=== PATIENT | male | born 1955 | race Caucasian/White ===

== ENCOUNTER 2016-07-15 09:56 | Day surgery (SDC) | payer OTHER ==
[~2016-07-15] VITALS: Ht 185.4 cm; Wt 88.5 kg
[~2016-07-15 09:56] MED LIST: ASPI81TA3 PO; ATOR20TA65 PO; Lisinopril PO; METO25TA6 PO; NITR0.4T SL; SILD100T PO; Sodium Chloride LOK Flush 10 mL Syringe IV PRN; fentaNYL-PF 50 mCg/mL 2 mL Inj IVPUSH PRN
[2016-07-15 10:11] VITALS: BP 139/93; PULSE 52; RESP 16; O2SAT 99
[2016-07-15] MEDS: 0.9% Sodium Chloride 1,000 ML IV SCH ×2 (10:46→11:09)
[2016-07-15 11:19] VITALS: BP 98/61; PULSE 64; RESP 16
[2016-07-15 11:41] VITALS: BP 94/58; PULSE 58; RESP 16; O2SAT 95
--- NOTE | 2016-07-15 13:13 | ENDO ---
[address] [address] ENDOSCOPY PROCEDURE PATIENT: OTTONIEL MARIE : 1955 MR#: [id number] ADMIT: 07/15/2016 JOB ID: [id number] DATE: 07/15/2016 PRIMARY PROVIDER: Phoenix Zamudio M.D. PROCEDURE: A colonoscopy with hot snare polypectomy. INDICATIONS: A 60-year-old male reports for colon cancer screening. EQUIPMENT: PCF H 180 AL. SEDATION: 1. 4 mg Versed. 2. 75 mcg fentanyl. COMPLICATIONS: None identified. BOWEL PREPARATION: Fair, adequate examination. PROCEDURAL INFORMATION: After the risks and benefits were explained, written and verbal informed consent was obtained. The patient was brought into the endoscopy suite and placed into the left lateral decubitus position. Sedation was achieved using the above-stated medications with the addition of oxygen via nasal cannula. A digital rectal examination was accomplished. No significant pathology appreciated. The scope was introduced into the rectum and advanced to the cecum as identified by the appendiceal orifice and ileocecal valve. The scope was slowly withdrawn to carefully examine the mucosa for any defects or lesions. Multiple direct views were made through the dentate line for exclusion of pathology. The colon was decompressed. The scope removed from the patient who tolerated the procedure well. FINDINGS: There was some mild diverticulosis in the sigmoid. There was a little bit of scattered petechiae through the distal rectum consistent with prep artifact. No evidence of any proctitis or colitis throughout. Mild internal hemorrhoids were noted on direct views. There was an approximately 8-9 mm semi pedunculated (short broad stalk) polyp in the rectum. This was removed with hot snare polypectomy. ENDOSCOPIC DIAGNOSES: 1. Colon polyp. 2. Diverticulosis. 3. Mild hemorrhoids. RECOMMENDATIONS: 1. Await histopathology. 2. Repeat colonoscopy in five years. [facility]
--- NOTE | 2016-07-16 19:36 | PATH ---
SURGICAL PATHOLOGY Attending Physician:Jerry Hall CASE STATUS: Signed Out PATIENT NAME: OTTONIEL MARIE PID: [id number] : 1955 DATE COLLECTED:07/15/2016 20:08 SPECIMEN: Rectum, Biopsy CLINICAL HISTORY: 1). RECTAL POLYP FINAL DIAGNOSIS: Rectum, Polyp, Biopsy: Tubular adenoma; negative for high-grade dysplasia. ICD10: K62.1 GROSS DESCRIPTION: The specimen is received in one formalin filled container labeled with the patient's name, sublabeled "rectal polyp" and consists of a 0.6 0.6 0.5 CM portion of tissue which is entirely submitted in one cassette. 07/15/2016 [facility] ICD-9 CODES: CPT CODES: 1: 32113 Electronically Signed Out Chelsea Rabago MD [facility] Pathology [facility], [place] [address] Technical component performed at [facility], [address] [place] [address] Ave[address], [place], [address]
== END 2016-07-15 23:59 | disposition home or self-care (01) ==
LOC: END 09:56
PROVIDERS: ATTEND Internal Medicine Gastroenterology
DX: Z12.11 Encounter for screening for malignant neoplasm of colon (principal); D12.8 Benign neoplasm of rectum; I10 Essential (primary) hypertension; I25.2 Old myocardial infarction; K57.30 Diverticulosis of large intestine without perforation or abscess without bleeding; K64.9 Unspecified hemorrhoids
CPT/HCPCS: 45385; G0500; J7030

== ENCOUNTER 2016-07-21 17:29 | Emergency (ER) | payer OTHER ==
[~2016-07-21] VITALS: Ht 185.4 cm; Wt 88.6 kg
[~2016-07-21 17:29] MED LIST changes: -Sodium Chloride LOK Flush 10 mL Syringe IV PRN; -fentaNYL-PF 50 mCg/mL 2 mL Inj IVPUSH PRN
[2016-07-21 17:49] VITALS: BP 166/97; PULSE 60; RESP 16; O2SAT 96
[2016-07-21 18:40] LABS: BASOPHILS % (AUTO) 0.4 % (0-3); EOSINOPHILS % (AUTO) 5.1 % (0-5); MONOCYTES % (AUTO) 8.6 % (4-12); Mean Corpuscular Hemoglobin 30.6 pg (27.0-35.0); Mean Corpuscular Volume 89.6 fL (81-100); NEUTROPHILS % (AUTO) 63.8 % (40-74); Platelet Count 197 bil/L (150-400)
--- NOTE | 2016-07-21 19:00 | ED.REPORT ---
HPI-GI Bleed Date of Service Jul 21, 2016 ED Provider: Elgin Bunch MD A 60 year old male with a history of ND, hypertension, and colonoscopy presents to the ED with rectal bleeding. This began following his colonoscopy 6 days ago. The bleeding began with a small amount of bright red blood with bowel movements for three days and heavy bleeding with bowel movements yesterday. He states that his toilet paper now has a large amount of blood after wiping and that his undergarments have been spotted with blood from when he passes gas. The patient has had one bowel movement per day for the last two days. He denies abdominal pain, nausea, lightheadedness, pain with bowel movements, black stools or hard stools. Nursing Notes Stated Complaint: BLEEDING Chief Complaint: Male Abdominal Pain Nursing Notes Reviewed: Yes Allergies: Coded Allergies: procaine (Verified Allergy, Unknown, syncope, 07/21/16) Scheduled ([Lisinopril]) 10 MG TABLET 10 MG PO HS Aspirin Chew (Aspirin Chew) 81 Mg Tablet 81 MG PO DAILY Atorvastatin Calcium (Atorvastatin Calcium) 20 Mg Tablet 40 MG PO HS Metoprolol Tartrate (Metoprolol Tartrate) 25 Mg Tablet 25 MG PO BID Scheduled PRN Nitroglycerin SL (Nitrostat) 0.4 Mg Tablet 0.4 MG SL Q5MIN PRN PRN For Chest Pain Sildenafil Citrate (Viagra) 100 Mg Tablet 100 MG PO UD PRN PRN for sexual activity General Time Seen by Provider: 19:00 Chief Complaint Chief Complaint: Other (Rectal bleeding) Hx Obtained From: Patient Arrived By: Walk-in Onset Occurred: 6 days ago Context of Onset: Other Symptom Duration: Since onset Recent Healthcare: No recent hospitalization, Recent doctor visit Past Medical History Past Medical History ND 2015 hypertension arthritis Past Surgical History colonoscopy 06/2016 Smoking History Light Tobacco Smoker Social History Alcohol Use: 1-3 per week Drug Use: Denies drug use Ambulatory Status Independent Review of Systems Review of Systems Note: rectal bleeding denies hard stools denies pain with bowel movements denies black stool GI: Denies: Abdominal pain, Diarrhea, Nausea Neurologic: Denies: Lightheaded Complete sys rev & neg: except as marked. Physical Exam Initial Vital Signs Vital Signs (First) Date Time Temp Pulse Resp B/P Pulse Ox O2 Delivery O2 Flow Rate FiO2 07/21/16 17:49 36.4 60 16 166/97 96 Room Air Initial VS: Reviewed Head / Eyes: Atraumatic, Normocephalic Extremities: Vascular intact, Neuro intact Skin: Warm, Dry Neurologic: Alert, Oriented Psychiatric: Mood/affect normal General/Constitutional: Awake, Alert, Well appearing Respiratory / Chest: Atraumatic, Breath sounds NL, Breath sounds = bilat, No respiratory distress Cardiovascular: Heart rate NL, Regular rhythm, Heart sounds NL Abdomen: Atraumatic, Soft, Non-tender, BS normoactive Rectum / Perineum: No mass, Prostate NL Externally normal Nontender Small amount of bright red blood on glove Back: Atraumatic, Full range of motion Interpretation & Diagnostics Lab Results Interpretation Result Diagram: 07/21/16 1825 07/21/16 1825 Test 07/21/16 18:25 White Blood Count 7.2th/mm3 (3.8-10.1) Red Blood Count 4.83mil/mm3 (4.40-5.80) Hemoglobin 14.8g/dL (13.8-17.2) Hematocrit 43.3% (41.0-50.0) Mean Corpuscular Volume 89.6fL (81-100) Mean Corpuscular Hemoglobin 30.6pg (27.0-35.0) Mean Corpuscular Hemoglobin Concent 34.2% (32.0-37.0) Red Cell Distribution Width 13.1% (12.3-15.4) Platelet Count 197bil/L (150-400) Neutrophils (%) (Auto) 63.8% (40-74) Lymphocytes (%) (Auto) 22.0% (14-46) Monocytes (%) (Auto) 8.6% (4-12) Eosinophils (%) (Auto) 5.1% (0-5) Basophils (%) (Auto) 0.4% (0-3) Sodium Level 139mEq/L (134-144) Potassium Level 4.1mEq/L (3.5-5.2) Chloride Level 102mEq/L (97-108) Carbon Dioxide Level 22mmol/L (18-29) Blood Urea Nitrogen 22mg/dL (8-27) Creatinine 0.97mg/dL (0.76-1.27) Estimat Glomerular Filtration Rate 84mL/min (>59) Glucose Level 111mg/dL (60-99) Calcium Level 9.9mg/dL (8.5-10.1) Total Bilirubin 1.0mg/dL (0.0-1.2) Aspartate Amino Transf (AST/SGOT) 20U/L (0-50) Alanine Aminotransferase (ALT/SGPT) 21U/L (0-44) Alkaline Phosphatase 56U/L (25-160) Total Protein 6.8g/dL (6.4-8.4) Albumin 4.6g/dL (3.4-5.0) Hold Hensley Top Tube Received (Received) Re-Eval/Medical Decision Source of Hx: Old records Re-Evaluation/Progress : Time of Eval: 19:31 Patient Status: Condition improved Re-Evaluation/Progress Note: Patient is informed of the results of consult and plan for discharge. The patient understands and agrees with the plan. All questions have been answered at this time. Consultation : Referral / Consult Name: Roxy Becker MD Call Returned at: 19:25 [employer]: Agrees with eval, Agrees with plan Note: Spoke to Dr. Becker, GI, regarding patient's case. Dr. Becker agrees with the evaluation and plan. Counseled Regarding: Diagnosis, Lab results, Need for follow-up, When/why to return to ED Discharge & Departure Impression: Primary Impression: Rectal bleeding Disposition: Home Discharge Condition All VS Reviewed: Yes Condition: Stable Additional Instructions: Emergency department evaluation today included interview, examination, labs, review of endoscopy note and discussion with a repeater operator. At this point there is no evidence of significant bleeding. Bleeding that you are observing should resolve on its own without intervention. It would be helpful to hold ibuprofen for a few days, 3-5, to help resolution of bleeding. Should you experience increased bleeding or year passing blood only frequently or feeling faint seek immediate medical attention. Do not hesitate to call an ambulance if this is happening. Follow up with gastroenterology if bleeding has not resolved within 1 week. Blood pressure was noted to be elevated. This should be reevaluated by primary care in approximately 2 weeks. Referrals: Phoenix Zamudio MD (PCP) Elgin Ruggiero MD Scribe Attestation Portions of this note were transcribed by Deonte Keane and Héctor Olmos. I, Dr. Bunch personally performed the history, physical exam and medical decision- making; I reviewed and confirmed the accuracy of the information in the transcribed note. Signed by: Deonte Keane and Rafael Velasquez, 07/21/16 at 2100. copies to: Phoenix Zamudio MD; Elgin Ruggiero MD, Donald L MD Jul 21, 2016 19:00 Deonte Keane Jul 21, 2016 19:13 HÉCTOR OLMOS Jul 21, 2016 20:50
[2016-07-21 19:51] VITALS: RESP 16
== END 2016-07-21 19:52 | disposition home or self-care (01) ==
LOC: SED 17:29
DX: K62.5 Hemorrhage of anus and rectum (principal); I25.2 Old myocardial infarction; I10 Essential (primary) hypertension; F17.200 Nicotine dependence, unspecified, uncomplicated; Z98.890 Other specified postprocedural states; Z88.8 Allergy status to other drugs, medicaments and biological substances; Z79.82 Long term (current) use of aspirin